=== PATIENT | female | born 1975 | race Caucasian/White ===

== ENCOUNTER 2018-11-25 08:02 | Day surgery (SDC) | payer OTHER ==
[2018-11-25] MEDS ORDERED: PROPOFOL 60 ML (09:58)
[2018-11-25] MEDS ORDERED: LIDOCAINE 2% (SDV) 5 ML INJ (09:59)
[2018-11-25] MEDS ORDERED: LABETALOL HCL 20MG INJ IV (11:00)
[2018-11-25] MEDS ORDERED: FENTAnyl 50 MCG/ML VIAL IV ×2 (11:00)
[2018-11-25] MEDS ORDERED: ONDANSETRON 4 MG INJ IV (11:00)
[2018-11-25] MEDS ORDERED: EPHEDrine 25 MG/5 ML SYG IV (11:00)
== END 2018-11-25 16:25 | disposition home or self-care (01) ==
LOC: GIL 08:02
DX: R19.4 Change in bowel habit (principal); K64.8 Other hemorrhoids; K29.50 Unspecified chronic gastritis without bleeding
CPT/HCPCS: 43239; 84703; 88305; 88312